=== PATIENT | female | born 1970 | race Caucasian/White ===

== ENCOUNTER 2018-05-27 18:41 | Emergency (ER) | payer SELFPAY ==
[2018-05-27] MEDS ORDERED: cloNIDine HCl 0.1 MG TAB ONE (19:30)
[2018-05-27 19:59] LABS: Urine Blood TRACE (NEG); Urine Glucose NEGATIVE (NEG); Urine Protein NEGATIVE (NEG)
--- NOTE | 2018-05-27 20:06 | ER ---
Nurse's Notes [facility] Name: Gauri Mckeon Age: 47 yrs Sex: Female : 1970 Arrival Date: 05/27/2018 Time: 18:46 Bed 24 Private MD: Diagnosis: Headache Presentation: 05/27 18:46 Presenting complaint: EMS states: patient complains of chest pain and headache that kr2 started this morning around 0800. Transition of care: Patient is in an inmate of [facility]. Onset of symptoms was May 27, 2018 at 08:00. Risk Assessment: Do you want to hurt yourself or someone else? Patient reports no desire to harm self or others. Initial Sepsis Screen: Does the patient meet any 2 criteria? No. Patient's initial sepsis screen is negative. Does the patient have a suspected source of infection? No. Patient's initial sepsis screen is negative. Care prior to arrival: None. 18:46 Method Of Arrival: EMS: [facility] kr2 18:46 Acuity: NENA 3 kr2 Triage Assessment: 18:52 General: Appears in no apparent distress. uncomfortable, well developed, Behavior is kr2 calm, cooperative, appropriate for age. Pain: Complains of pain in Head and chest Pain does not radiate. Pain currently is 8 out of 10 on a pain scale. Quality of pain is described as aching, pressure, Is continuous, Alleviated by nothing. Aggravated by increased activity. EENT: Oral mucosa is moist. Neuro: Level of Consciousness is awake, alert, obeys commands, Oriented to person, place, time, situation, Appropriate for age. Cardiovascular: Capillary refill < 3 seconds in bilateral fingers Patient's skin is warm and dry. Rhythm is sinus tachycardia. Respiratory: Airway is patent Respiratory effort is even, unlabored, Respiratory pattern is regular, symmetrical. GI: Abdomen is flat, non-distended. : Denies burning with urination. Derm: Skin is intact, is healthy with good turgor, Skin is pink, warm \T\ dry. Musculoskeletal: Circulation, motion, and sensation intact. 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 - Social history:: Smoking status: Patient/guardian denies using tobacco, but has a distant history of tobacco abuse. - Ebola Screening: : No symptoms or risks identified at this time. Screenin:56 Abuse screen: Denies threats or abuse. Denies injuries from another. Nutritional kr2 screening: No deficits noted. Tuberculosis screening: No symptoms or risk factors identified. Fall Risk None identified. Assessment: 19:25 Reassessment: Patient returned from radiology at this time. lp1 19:29 General: Appears in no apparent distress. Behavior is anxious. Pain: Denies pain. lp1 Neuro: Level of Consciousness is awake, alert, obeys commands, Oriented to person, place, time, situation, Gait is steady, Speech is normal, Pupils are PERRLA, Reports headache. Cardiovascular: Patient's skin is warm and dry. Respiratory: Respiratory effort is even, unlabored. GI: Reports nausea, related to migraine. : No signs and/or symptoms were reported regarding the genitourinary system. EENT: No signs and/or symptoms were reported regarding the EENT system. Derm: Skin is intact, Skin is dry, Skin is normal. Musculoskeletal: Circulation, motion, and sensation intact. 19:33 Reassessment: Patient drinking water, tolerating well. lp1 20:10 Reassessment: Patient states continued nausea and headache at this time. lp1 Vital Signs: 18:55 BP 144 / 86; Pulse 91; Resp 15; Temp 98.2; Pulse Ox 99% ; Weight 64.41 kg; Height 5 ft. kr2 3 in. (160.02 cm); Pain 8/10; 19:30 BP 139 / 84; Pulse 94; Resp 16; Pulse Ox 97% on R/A; lp1 20:11 BP 119 / 72; Pulse 89; Resp 17; Pulse Ox 98% on R/A; lp1 18:55 Body Mass Index 25.15 (64.41 kg, 160.02 cm) kr2 Tyree Coma Score: 20:05 Eye Response: spontaneous(4). Verbal Response: oriented(5). Motor Response: obeys snw commands(6). Total: 15. ED Course: 18:46 Patient arrived in ED. bd 18:46 Sarah Aleman, RN is Primary Nurse. kr2 18:49 Triage completed. kr2 18:51 Rekha Jackson FNP-C is [facility]. snw 18:51 Monty Conway MD is Attending Physician. snw 18:56 Arm band placed on. kr2 18:57 Patient has correct armband on for positive identification. Bed in low position. Call kr2 light in reach. Side rails up X2. conveyor monitor on. Pulse ox on. NIBP on. Warm blanket given. Head of bed elevated. 19:11 Pillow given. jp3 19:11 EKG done, by ED staff, reviewed by Rekha PAZ. jp3 19:18 Chest Pa And Lat (2 Views) XRAY In Process Unspecified. EDMS 19:30 Urine collected: clean catch specimen, clear, priya colored, Amount Voided: 30mL. jp3 20:03 Urine Microscopic Only Sent. jp3 20:19 No provider procedures requiring assistance completed. Patient did not have IV access lp1 during this emergency room visit. Administered Medications: 19:35 Drug: cloNIDine 0.1 mg Route: PO; lp1 20:10 Follow up: Response: Blood pressure is lowered lp1 20:18 Drug: TORadol 60 mg Route: IM; Site: left deltoid; lp1 20:33 Follow up: Response: Marked relief of symptoms; Pain is decreased lp1 20:18 Drug: Zofran 4 mg Route: PO; lp1 20:33 Follow up: Response: Nausea is decreased lp1 Outcome: 20:06 Discharge ordered by . snw 20:33 Discharged to home ambulatory, with friend. lp1 20:33 Condition: good 20:33 Discharge instructions given to patient, Instructed on discharge instructions, follow up and referral plans. Demonstrated understanding of instructions, follow-up care. 20:37 Patient left the ED. lp1 Signatures: Dispatcher [employer] EDMS Vandana Stark Rekha Jackson FNP-C [employer] ARCHITECT-Csnw Sravani Silvestre, RN RN lp1 Sarah Aleman, RN RN kr2 Vincent Goel jp3
--- NOTE | 2018-05-27 20:07 | RAD REPORT ---
EXAM DESCRIPTION: RAD - Chest Pa And Lat (2 Views) - 05/27/2018 7:20 pm CLINICAL HISTORY: Chest pain COMPARISON: March 2015 TECHNIQUE: PA and lateral views of the chest were obtained. FINDINGS: The lungs are clear. Heart size is normal and central vasculature is within normal limit s. No pleural effusion or pneumothorax seen. No acute bony finding noted. No aortic abnormality. No significant change from comparison. IMPRESSION: No acute cardiopulmonary process.
--- NOTE | 2018-05-27 20:07 | EDPHYS ---
Physician Documentation [facility] Name: Gauri Mckeon Age: 47 yrs Sex: Female : 1970 Arrival Date: 05/27/2018 Time: 18:46 Bed 24 Private MD: ED Physician Monty Conway HPI: 05/27 19:04 This 47 yrs old Female presents to ER via EMS with complaints of headache, snw anxiety. 19:04 The patient complains of pain to the top of head. The patient describes the headache as snw aching, a pressure. Onset: The symptoms/episode began/occurred gradually. Severity of symptoms: At its worst the pain was moderate. Headache History: The patient has had previous headaches and this one is similar to previous episodes. The patient has experienced similar episodes in the past. The patient has not recently seen a physician, pt has moved, no PCP. 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 - Social history:: Smoking status: Patient/guardian denies using tobacco, but has a distant history of tobacco abuse. - Ebola Screening: : No symptoms or risks identified at this time. ROS: 19:05 Constitutional: Negative for fever, chills, and weight loss, Eyes: Negative for injury, snw pain, redness, and discharge, ENT: Negative for injury, pain, and discharge, Neck: Negative for injury, pain, and swelling. 19:05 Respiratory: Negative for shortness of breath, cough, wheezing, and pleuritic chest pain, Abdomen/GI: Negative for abdominal pain, nausea, vomiting, diarrhea, and constipation, Back: Negative for injury and pain, : Negative for injury, bleeding, discharge, and swelling, MS/Extremity: Negative for injury and deformity, Skin: Negative for injury, rash, and discoloration. 19:05 Cardiovascular: Positive for chest pain, of the mid-sternal area. 19:05 Neuro: Positive for headache. Exam: 19:06 Constitutional: This is a well developed, well nourished patient who is awake, alert, snw and in no acute distress. Head/Face: Normocephalic, atraumatic. Eyes: Pupils equal round and reactive to light, extra-ocular motions intact. Lids and lashes normal. Conjunctiva and sclera are non-icteric and not injected. Cornea within normal limits. Periorbital areas with no swelling, redness, or edema. ENT: Nares patent. No nasal discharge, no septal abnormalities noted. Tympanic membranes are normal and external auditory canals are clear. Oropharynx with no redness, swelling, or masses, exudates, or evidence of obstruction, uvula midline. Mucous membranes moist. Neck: Trachea midline, no thyromegaly or masses palpated, and no cervical lymphadenopathy. Supple, full range of motion without nuchal rigidity, or vertebral point tenderness. No Meningismus. Chest/axilla: Normal chest wall appearance and motion. Nontender with no deformity. No lesions are appreciated. Cardiovascular: Regular rate and rhythm with a normal S1 and S2. No gallops, murmurs, or rubs. Normal PMI, no JVD. No pulse deficits. Respiratory: Lungs have equal breath sounds bilaterally, clear to auscultation and percussion. No rales, rhonchi or wheezes noted. No increased work of breathing, no retractions or nasal flaring. Abdomen/GI: Soft, non-tender, with normal bowel sounds. No distension or tympany. No guarding or rebound. No evidence of tenderness throughout. Back: No spinal tenderness. No costovertebral tenderness. Full range of motion. Skin: Warm, dry with normal turgor. Normal color with no rashes, no lesions, and no evidence of cellulitis. MS/ Extremity: Pulses equal, no cyanosis. Neurovascular intact. Full, normal range of motion. Neuro: Awake and alert, GCS 15, oriented to person, place, time, and situation. Cranial nerves II-XII grossly intact. Motor strength 5/5 in all extremities. Sensory grossly intact. Cerebellar exam normal. Normal gait. Psych: Awake, alert, with orientation to person, place and time. Behavior, mood, and affect are within normal limits. Vital Signs: 18:55 BP 144 / 86; Pulse 91; Resp 15; Temp 98.2; Pulse Ox 99% ; Weight 64.41 kg; Height 5 ft. kr2 3 in. (160.02 cm); Pain 8/10; 19:30 BP 139 / 84; Pulse 94; Resp 16; Pulse Ox 97% on R/A; lp1 20:11 BP 119 / 72; Pulse 89; Resp 17; Pulse Ox 98% on R/A; lp1 18:55 Body Mass Index 25.15 (64.41 kg, 160.02 cm) kr2 Tyree Coma Score: 20:05 Eye Response: spontaneous(4). Verbal Response: oriented(5). Motor Response: obeys snw commands(6). Total: 15. MDM: 18:54 Patient medically screened. snw 20:05 Data reviewed: vital signs, nurses notes. Data interpreted: Pulse oximetry: on room air snw is 97 %. Interpretation: normal. Counseling: I had a detailed discussion with the patient and/or guardian regarding: the historical points, exam findings, and any diagnostic results supporting the discharge/admit diagnosis, the presence of at least one elevated blood pressure reading (>120/80) during this emergency department visit, radiology results, the need for outpatient follow up, to return to the emergency department if symptoms worsen or persist or if there are any questions or concerns that arise at home. Special discussion: Based on the patient's history, exam, and Dx evaluation, there is no indication for emergent intervention or inpatient Tx. It is understood by the patient/guardian that if the Sx's persist or worsen they need to return immediately for re-evaluation. I have referred the patient to see his PCP for further evaluation of high blood pressure. Based on the history and exam findings, there is no indication for further emergent testing or inpatient evaluation. I discussed with the patient/guardian the need to see the primary care provider for further evaluation of the symptoms. 05/27 18:58 Order name: Urine Microscopic Only; Complete Time: 20:13 snw 05/27 19:56 Order name: Urine Dipstick--Ancillary (enter results); Complete Time: 20:04 mt 05/27 18:58 Order name: Chest Pa And Lat (2 Views) XRAY; Complete Time: 20:09 snw 05/27 19:56 Order name: Urine --Ancillary (enter results); Complete Time: 20:04 mt 05/27 18:58 Order name: Urine Dipstick-Ancillary (obtain specimen); Complete Time: 19:32 snw 05/27 18:58 Order name: EKG; Complete Time: 18:58 snw 05/27 18:58 Order name: EKG - Nurse/Tech; Complete Time: 19:05 snw 05/27 20:05 Order name: PO challenge; Complete Time: 20:10 snw Administered Medications: 19:35 Drug: cloNIDine 0.1 mg Route: PO; lp1 20:10 Follow up: Response: Blood pressure is lowered lp1 20:18 Drug: TORadol 60 mg Route: IM; Site: left deltoid; lp1 20:33 Follow up: Response: Marked relief of symptoms; Pain is decreased lp1 20:18 Drug: Zofran 4 mg Route: PO; lp1 20:33 Follow up: Response: Nausea is decreased lp1 Disposition: 05/27/18 20:06 Discharged to Home. Impression: Headache. - Condition is Stable. - Discharge Instructions: Dehydration, Adult, General Headache Without Cause, Hypertension, Rehydration, Adult. - Medication Reconciliation Form, Thank You Letter, Antibiotic Education, Prescription Opioid Use form. - Follow up: Private Physician; When: 2 - 3 days; Reason: Recheck today's complaints, Continuance of care, Re-evaluation by your physician. Follow up: Emergency Department; When: As needed; Reason: Worsening of condition. Addendum: 05/31/2018 22:15 Co-signature as Attending Physician, Monty Conway MD. r n Signatures: Dispatcher [employer] EDMI Rekha Jackson, CAR MECHANIC-C CAR MECHANIC-Csnw Monty Conway MD MD rn Pena, Laura RN RN lp1 Sarah Aleman RN RN kr2 Corrections: (The following items were deleted from the chart) 05/27 20:37 20:06 05/27/2018 20:06 Discharged to Home. Impression: Headache. Condition is Stable. lp1 Forms are Medication Reconciliation Form, Thank You Letter, Antibiotic Education, Prescription Opioid Use. Follow up: Private Physician; When: 2 - 3 days; Reason: Recheck today's complaints, Continuance of care, Re-evaluation by your physician. Follow up: Emergency Department; When: As needed; Reason: Worsening of condition. snw
[2018-05-27 20:11] LABS: Urine Bacteria <20 /HPF (<20); Urine Culture Reflex Order NOT NEEDED; Urine Mucus LIGHT /HPF (NONE SEEN); Urine RBC <5 /HPF (NONE SEEN)
[2018-05-27] MEDS ORDERED: ONDANSETRON 4 MG (ODT) TAB ONE (20:20)
[2018-05-27] MEDS ORDERED: KETOROLAC 30 MG/ML INJ ONE (20:20)
--- NOTE | 2018-05-28 07:11 | EKG ---
Test Date: 2018-05-27 Test Time: 19:07:10 Bag Filler: BRENNEN MEASUREMENT RESULTS: Intervals: Rate: 84 NC: 188 QRSD: 102 QT: 364 QTc: 430 [place]: P: 74 NC: 188 QRS: 70 T: 55 INTERPRETIVE STATEMENTS: Normal sinus rhythm with sinus arrhythmia Possible Left atrial enlargement Borderline ECG Compared to ECG 03/25/2015 22:59:14 Sinus bradycardia no longer present Short NC interval no longer present Left ventricular hypertrophy no longer present Electronically Signed On 05-28-18 07:11:21 BANKRUPTCY MANAGER by Patrice Rodriguez
== END 2018-05-27 20:37 | disposition home or self-care (01) ==
LOC: ER 18:41
DX: R51 Headache (principal); E11.9 Type 2 diabetes mellitus without complications
CPT/HCPCS: 71046; 81003; 81015; 81025; 93005; 96372; 99284